=== PATIENT | male | born 1985 | race Caucasian/White ===

== ENCOUNTER 2019-08-14 13:22 | Emergency (ER) | payer OTHER ==
[2019-08-14 13:45] VITALS: BP 122/72
--- NOTE | 2019-08-14 14:10 | UC ---
Hand/Wrist HPI - HPI Summary HPI Summary: 33 yo male s/p fall yesterday right hand /little finger pain hx of 4th MC fx that needed addressing by orthopedist but was not taken care of in a timely fashsion He is right handed - History Of Current Complaint Chief Complaint: UCUpperExtremity Stated Complaint: RT HAND INJ Time Seen by Provider: 08/14/19 14:03 Hx Obtained From: Patient Onset/Duration: Sudden Onset Severity Initially: Moderate Severity Currently: Moderate Pain Intensity: 5 Pain Scale Used: 0-10 Numeric Character Of Pain: Aching, Throbbing Aggravating Factor(s): Movement Alleviating Factor(s): Rest Associated Signs And Symptoms: Positive: Swelling Related History: Dominant Hand Right Hands: 1 - pain here, dorsal hand edema - Allergies/Home Medications Allergies/Adverse Reactions: Allergies Allergy/AdvReac Type Severity Reaction Status Date / Time narcotic AdvReac See Comment Uncoded 08/14/19 13:38 Home Medications: Home Medications Acetaminophen TAB* [Tylenol TAB*] 650 mg PO Q4H PRN 08/14/19 [History Confirmed 08/14/19] Ibuprofen TAB* [Advil TAB*] 400 mg PO Q6H PRN 08/14/19 [History Confirmed ] PMH/Surg Hx/FS Hx/Imm Hx Previously Healthy: Yes - Surgical History Surgical History: Yes Surgery Procedure, Year, and Place: R hip surgery. oral - Family History Known Family History: Positive: Other - Grandfather committed suicide Negative: Cardiac Disease, Hypertension, Diabetes - Social History Alcohol Use: None Substance Use Type: Marijuana Substance Use Comment - Amount & Last Used: daily- last used yesterday Smoking Status (MU): Heavy Every Day Tobacco Smoker Type: Cigarettes Amount Used/How Often: 1 PPD Review of Systems All Other Systems Reviewed And Are Negative: Yes Constitutional: Positive: Negative Skin: Positive: Negative Eyes: Positive: Negative ENT: Positive: Negative Respiratory: Positive: Negative Cardiovascular: Positive: Negative Gastrointestinal: Positive: Negative Genitourinary: Positive: Negative Motor: Positive: Negative Neurovascular: Positive: Negative Musculoskeletal: Positive: Arthralgia - right little finger MCP Neurological: Positive: Negative Psychological: Positive: Negative Physical Exam Vital Signs: Initial Vital Signs Temp 98.5 F 08/14/19 13:40 Pulse 68 08/14/19 13:40 Resp 15 08/14/19 13:40 BP 122/72 08/14/19 13:40 Pulse Ox 98 08/14/19 13:40 Diagnostics - Radiology No standard instances Radiology Interpretation Completed By: Radiologist Summary of Radiographic Findings: no acute fx per readiologist but pt has transverse fracture of prox 5th pp Hand/Wrist Course/Dx - Differential Dx/Diagnosis Provider Diagnosis: Fracture of phalanx of right little finger Discharge ED - Sign-Out/Discharge Documenting (check all that apply): Patient Departure All imaging exams completed and their final reports reviewed: Yes - Discharge Plan Condition: Stable Disposition: HOME Patient Education Materials: Finger Fracture (ED) Referrals: Thierno High MD [Medical Doctor] - Additional Instructions: splint I suggest ortho follow up motrin - Billing Disposition and Condition Condition: STABLE Disposition: Home
== END 2019-08-14 14:41 | disposition home or self-care (01) ==
LOC: UCCORT 13:22
DX: S62.616A Displaced fracture of proximal phalanx of right little finger, initial encounter for closed fracture (principal); F17.210 Nicotine dependence, cigarettes, uncomplicated; W19.XXXA Unspecified fall, initial encounter; Z88.5 Allergy status to narcotic agent
CPT/HCPCS: 26720; 99201; G0463